=== PATIENT | male | born 1995 | race American Indian/Alaskan Native ===

== ENCOUNTER 2018-02-28 22:35 | Inpatient (IN) | payer BC ==
[2018-02-28 22:37] VITALS: BMI 25.1
[2018-02-28] MEDS ORDERED: Bacitracin 500 Units/gm Oint Foilpak UD TOP ONE (23:06)
--- NOTE | 2018-02-28 23:26 | ED PDOC ---
HPI: Psych/Substance Abuse Time Seen by Provider: 02/28/18 23:01 Chief Complaint (Nursing): Psychiatric Evaluation Chief Complaint (Provider): Psychiatric Evaluation ED Caveat: Intoxicated History Per: Patient, Family (Parents) History/Exam Limitations: intoxication Onset/Duration Of Symptoms: Hrs Additional Complaint(s): 22 years old male with history of depression brought to the ED by his parents for evaluation of alcohol intoxication after patient attempted to self-harm earlier this evening. Parent reports patient has came home earlier evening in [facility] and was unable to get out of the car, therefore, his father had to carry him. Patient admits drinking alcohol after having an argument with his girlfriend on the phone and attempted to cut his arm with pocket knife. He also reported to them that he wanted to jump off a bridge. PMD: [facility] in [place], [place] Full HPI and ROS are limited due to the patient's intoxicated condition. Past Medical History Reviewed: Historical Data, Nursing Documentation, Vital Signs Vital Signs: Last Vital Signs Temp 98.7 F 02/28/18 22:37 Pulse 123 H 02/28/18 22:37 Resp 20 02/28/18 22:37 BP 124/78 02/28/18 22:37 Pulse Ox 99 02/28/18 22:37 - Medical History PMH: Anxiety, Depression - Surgical History Surgical History: No Surg Hx - Family History Family History: States: Unknown Family Hx - Social History Current smoker - smoking cessation education provided: No Alcohol: Social Drugs: Other (Unkown) - Allergies Allergies/Adverse Reactions: Allergies Allergy/AdvReac Type Severity Reaction Status Date / Time tumeric Allergy RASH Uncoded 02/28/18 22:37 Review of Systems Review Of Systems: ROS cannot be obtained secondary to pt's inabilty to answer questions. (due to intoxication) Physical Exam - Reviewed Nursing Documentation Reviewed: Yes Vital Signs Reviewed: Yes - Physical Exam Appears: Positive for: No Acute Distress (and sleeping deeply) Head Exam: Positive for: ATRAUMATIC, NORMOCEPHALIC Skin: Positive for: Warm, Dry Eye Exam: Positive for: EOMI, PERRL, Conjunctival injection ENT: Negative for: Pharyngeal Erythema, Tonsillar Exudate Neck: Positive for: Painless ROM, Supple Cardiovascular/Chest: Positive for: Regular Rate, Rhythm, Tachycardia. Negative for: Murmur Respiratory: Positive for: Normal Breath Sounds. Negative for: Wheezing Gastrointestinal/Abdominal: Positive for: Soft. Negative for: Tenderness Back: Positive for: Normal Inspection. Negative for: Decreased ROM Extremity: Positive for: Normal ROM, Other (Superficial linear laceration to the left ubber arm isolated to epidermis, hemostasis. No surrounding erythema.) Lymphatic: Negative for: Adenopathy Neurologic/Psych: Positive for: Other (sleeping deeply, responsive to painful stimuli with slurred speech. Unable to stay awake for full assessment of orientation of mood). Negative for: Motor/Sensory Deficits - ECG O2 Sat by Pulse Oximetry: 99 (RA) Pulse Ox Interpretation: Normal Medical Decision Making Medical Decision Making: Time: 2305 Initial Impression: Alcohol intoxication, alcohol induced mood disorder, left arm laceration, self-inflected wounds and depression. Initial Plan: --Acetaminophen --Alcohol Serum --CMP --Salicylate --CBC --Bacitracin 1 ea Philippe Once Scribe Attestation: Documented by Bisi Maynard, acting as a scribe for Tamara Sullivan MD. Provider Scribe Attestation: All medical record entries made by the Scribe were at my direction and personally dictated by me. I have reviewed the chart and agree that the record accurately reflects my personal performance of the history, physical exam, medical decision making, and the department course for this patient. I have also personally directed, reviewed, and agree with the discharge instructions and disposition. Disposition - Clinical Impression Clinical Impression: Alcohol intoxication - Disposition Disposition: Transfer of Care Disposition Time: 00:00 Condition: STABLE Patient Signed Over To: Josh Albrecht Handoff Comments: Pending sobriety, crisis eval, and final ER disposition
[2018-02-28 23:44] LABS: BASO # 0.1 K/uL (0.0-0.2); BASO % 0.9 % (0.0-2.0); EOS # 0.2 K/uL (0.0-0.7); EOS % 3.4 % (0.0-4.0); HEMOGLOBIN 15.1 g/dL (12.0-18.0); LYMPH # 1.7 K/uL (1.0-4.3); MEAN CELL VOLUME 88.8 fl (80.0-94.0); MEAN CORPUSCULAR HEMOGLOBIN 30.5 pg (27.0-31.0); MEAN CORPUSCULAR HGB CONC 34.3 g/dL (33.0-37.0); MONO # 0.3 K/uL (0.0-0.8); MONO % 4.9 % (0.0-10.0); NEUT # 3.7 K/uL (1.8-7.0); NEUT % 62.8 % (50.0-75.0); RBC 4.95 Mil/uL (4.40-5.90); RED CELL DISTRIBUTION WIDTH 13.2 % (11.5-14.5); WHITE BLOOD COUNT 5.9 K/uL (4.8-10.8)
[2018-02-28 23:49] LABS: ACETAMINOPHEN < 10.0 ug/ml (10.0-30.0); SALICYLATE < 1.0 mg/dl
[2018-02-28 23:51] LABS: ALB/GLOB RATIO 1.4 (1.0-2.1); ALBUMIN 5.3 g/dL (3.5-5.0); ALT/SGPT 79 U/L (21-72); AST/SGOT 64 U/L (17-59); BLOOD UREA NITROGEN 17 mg/dl (9-20); CALCIUM 9.9 mg/dL (8.4-10.2); GFR AFRICAN-AMERICAN > 60; GFR NON-AFRICAN AMERICAN > 60
[2018-03-01 04:23] LABS: BARBITURATES, UR NEGATIVE (NEGATIVE); OPIATES, UR NEGATIVE (NEGATIVE); PHENCYCLIDINE, UR NEGATIVE (NEGATIVE)
--- NOTE | 2018-03-01 04:37 | ED PDOC ---
- Laboratory Results Result Diagrams: 02/28/18 23:26 02/28/18 23:26 - ECG O2 Sat by Pulse Oximetry: 99 (RA) Pulse Ox Interpretation: Normal Medical Decision Making Medical Decision Makin Patient endorsed to me by Dr. Sullivan pending Crisis eval. 0400 Pt's HR and BP normalized. Medically cleared. Patient accepted to inpatient psych by Dr. Dos Santos with dx: depression. Disposition - Clinical Impression Clinical Impression: Depression - POA Present On Arrival: None - Disposition Disposition: Admitted as In-Patient Disposition Time: 04:00 Condition: FAIR
[2018-03-01 04:42] LABS: BENZODIAZEPINES, UR POSITIVE (NEGATIVE)
[2018-03-01] MEDS ORDERED: Magnesium Hydroxide Susp 30 ml UD PO PRN (05:21)
[2018-03-01] MEDS ORDERED: Alum-Mag Hydrox-Simethicone Susp (30 mL) PO PRN (05:21)
[2018-03-01 05:35] VITALS: O2SAT 98
--- NOTE | 2018-03-01 05:55 | PCM.BM ---
<VenturaBrandie Yumiko - Last Filed: 03/01/18 05:53> Treatment Plan Problems - Problems identified on initial assessmt Hopelessness/Helplessness Date Initiated: 03/01/18 Time Initiated: 05:54 Assessment reference: NA Status: Active Treatment assets and liabiliti Patient Assests: cooperative, ADL independent, physically healthy, good support system, negotiates basic needs Patient Liabilities: relationship conflicts, substance abuse - Milieu Protocol Maintain good personal hygiene: every shift Encourage regular showers, every shift Remind patient to perform daily oral care Conduct patient checks and document Observation sheet: Q15 minutes Maintain personal safety: every shift Educate patient to report safety concerns to staff, every shift Monitor environment for contraband/sharps Medication safety: Monitor for expected outcome, potential side effects: every shift, Assess barriers to learning: every shift, Assess readiness for medication education: every shift <Jus Izaguirre - Last Filed: 03/03/18 09:47> Family Contact Family involvement: Family/SO is involved Family contact: Patient agrees to contact, Family has been contacted by patient , Telephone contact initiated by staff Family contact name: Ibrahima Epperson Family contacted how many times per week?: 2 Family contact comment: Pt spoke with pt's father, Ibrahima Epperson. Floor Coverer Apprentice informed pt's father that he has yet to meet with pt and is not aware whether pt has signed a consent to discuss his treatment with his parents. Floor Coverer Apprentice was able to take collateral from father regarding circumstances surrounding admission. Pt's father reported that pt went into the city on 02/28 with his girlfriend and the pt was in communication with his father the entire time. Pt' s father reported that pt called him and told him they were filming "[employer] " and the pt saw Jesse Cummings. Pt's father reported that when pt arrived back home at around 1999 (8PM) when was heavily intoxicated and needed to be carried [facility] the [facility]. Pt's father reported that pt resides on campus in [place] and he is unaware of how much pt drinks. Pt's father reported he assumes it is a lot, but has never seen pt this intoxicated before. Pt's father reported that pt said he did not have anything to eat on the day of admission. Pt's father believes that pt must have had some altercation with his girlfriend as he called her several times after returning home and pt's father had to take the pt 's phone away. Pt's father at this point said that the pt got out his pocket knife and threatened to harm himself if his phone was not returned to him. Pt's family then became vary concerned and called 911. When police arrived pt put down the knife and went to the hospital in a cooperative manner. Pt's father denied that he felt that if sober pt was a danger to himself or anyone else. Pt' s father denied that pt ever threatened to harm anyone except himself. Pt's father reported that pt was assessed when he BAL was 150, yet father felt that pt was still too drunk to give an accurate assessment. Pt's reported that he was told that procedure was that pt's were assessed when BAL was 150 even when father reported that pt was having difficulty processing information and communicating appropriately. Pt's father reported he felt that the differences between voluntary and involuntary were not explained appropriately to him or especially to his 22 year old son who still had a BAL of 150. Pt's father reported that PES worker described [facility] as "violent" and a place that he would not want his son to go as a coercive measure for the father to convince his son to sign in. Ibrahima reported that pt stated to him multiple times that he was feeling better and only wanted to return home. Pt's father reported that pt was taken up to the unit between 0400 and 0500 and at this point after rest and a lot of water pt seemed much more himself. Pt's father believed that if pt was referred for assessment at this time the initial assessment and outcome would have been different. Pt's father reported that screener told him that the pt admitted to jumping off of a balcony and pt's father retorted that if pt had jumped from a balcony there would be resulting injuries. Again pt's father reported that pt was heavily intoxicated at initial presentation in the ED and was not making sense at times adn was reporting things that were untrue. Pt's father reported that pt has a therapist, Dr. Yasmin Leigh, in [place], [place] that pt sees face to face when he is home from college and has phone sessions with when he is living at school. - Outside Agency Agency 1 Care involvment: Following patient during stay, Information-sharing Agency contact name: Dr. Yasmin Leigh - [place], [place] Agency contact number: - Goals for Treatment Patient goals for treatment: Pt is guarded, superficially cooperative and even oppositional at times. It is clear that pt does not want to be hospitalized and expressed that feels no benefits from being in the hospital and is refusing medications. Pt has been attending art therapy and clinical groups. Pt appears to lack insight into his current mental state and is unable to verbalize why he may have self-harmed. Patient's family/SO goals for treatment: Pt's family has made it very clear that they feel continued hospitalization will be detrimental to the pt's mental health and would like for him to be discharged as soon as possible. Discharge/Continuing Care - Education Needs Education Needs: Family Medication, Family Diagnosis/Disease Process, Family Coping Skills, Patient Medication, Patient Diagnosis/Disease Process, Patient Coping Skills, Patient Anger Management skills, Patient Aftercare Safety Plan - Discharge Discharge Criteria: Tolerates medication w/o severe side effects, Free of Suicidal thoughts, Free of agitation, Normal sleep pattern, No longer exhibiting s/s of withdrawal, Reduction of target symptoms Discharge to:: Home, With Family - Treatment Team Participation Patient/Family/SO Statement: 03/03/18 09:53 Pt attended treatment team and was superficially cooperative. Dr. Tanner met with pt and CASANDRA Izaguirre to discuss discharge on 03/03 with a followup with [facility] in [place] also on 03/03. Pt denied having questions or concerns at this time and is still refusing medications. Pt was administered something for anxiety. Pt appears resentful toward staff as he feels he is being hospitalized against his will as he had already signed a 48 hour notice and does not want to wait out the 48 hours. Discussed with Family/SO: Yes Was Patient/Family/SO present at Treatment Team Meeting: Yes <Marilee Tanner - Last Filed: 03/03/18 12:23> - Diagnosis (1) Depression Status: Acute Interventions: 03/02/18 13:18 psychotherapy, pharmacotherapy
[2018-03-01 07:18] LABS: HDL CHOLESTEROL 57 MG/DL (30-70)
[2018-03-01 07:28] LABS: LDL CHOLESTEROL 94 mg/dL (0-129)
[2018-03-01] MEDS: Multivitamin With Minerals Tab PO SCH (14:32)
--- NOTE | 2018-03-01 15:46 | PCM.PSYCH ---
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 patient reported he was out with the girl friend in the city , became angry after conflict with security personal , started consuming increasing amount of alcohol, after which he blacked out and could not remember the rest of events that led to his presence in ER pt reported that for past month he has been increasingly anxious and depressed, as he is unable to catch up with school work and having trouble to keep his grades satisfactory for his parents, part of his frustration also related to short memory deficits which started after the TBI, PT reported HE continues to suffer from social anxiety and discomfort with his body image as he has been bullied due to his body weight in middle school, stating despite loosing weight continues to be unhappy about his weight to the point that he some times experiences body dysmorphic disorder symptoms , reported decreased sleep with early insomnia, episodes of poor motivation and episodes of poor impulse control PT minimizing the alcohol use , with limited insight into that problem collateral information from ER CW spoke to pt's dad, Ibrahima EppersonIyqljczyd-[phone], who stated he called 911 seamus due to pt cutting himself. He stated it started due to he and his girlfriend getting into an argument. He stated he and his gf argue a lot. He stated pt has been in therapy in the past due to depression but has not taken meds or been in tx while in school. He stated he would like to speak to pt about admission. He stated he feels pt does need help. Current Medications: Active Medications Generic Name Dose Route Start Last Admin Trade Name Freq PRN Reason Stop Dose Admin Acetaminophen 650 mg 03/01/18 05:21 Tylenol 325mg Tab PO Q4 PRN Pain, moderate (4-7) Al Hydrox/Mg Hydrox/Simethicone 30 ml 03/01/18 05:21 Maalox Plus 30 Ml PO Q4 PRN Dyspepsia Fluoxetine HCl 10 mg 03/01/18 14:58 Prozac PO DAILY KARINA Folic Acid 1 mg 03/01/18 09:00 03/01/18 14:32 Folic Acid PO Not Given DAILY KARINA Lorazepam 1 mg 03/01/18 05:21 Ativan IVP Q4H PRN Symptoms of alcohol withdrawl Lorazepam 1 mg 03/01/18 05:21 Ativan PO Q4H PRN Symptoms of alcohol withdrawl Lorazepam 1 mg 03/01/18 09:00 03/01/18 14:32 Ativan PO Not Given TID KARINA Magnesium Hydroxide 30 ml 03/01/18 05:21 Milk Of Magnesia PO HS PRN Constipation Multivitamins/Minerals 1 tab 03/01/18 09:00 03/01/18 14:32 Therapeutic-M Tab PO Not Given DAILY KARINA Thiamine HCl 100 mg 03/01/18 09:00 03/01/18 14:33 Vitamin B1 Tab PO Not Given DAILY KARINA Trazodone HCl 50 mg 03/01/18 05:21 Desyrel PO HS PRN Insomnia Past Psychiatric History - Past Psychiatric History Explanation of prior treatment: patient reported an event of cutting himself superficially two years ago while intoxicated, no hospitalization then has been placed prior on prozac and wellbutrin only medication currently is adderrall History of Abuse: denied History of ETOH/Drug Use: started at age 20 History of Family Illness: reported depression on father side Pertinent Medical Hx (Current Medical&Sleep Prob, Allergies): Allergies Allergy/AdvReac Type Severity Reaction Status Date / Time tumeric Allergy RASH Uncoded 02/28/18 22:37 No Known Home Med 03/01/18 Mental Status Examination - Personal Presentation Personal Presentation: Looks stated age - Affect Affect: Constricted, Depressed - Reliability in Providing Information Reliability in Providing Information: Good - Speech Speech: Relevant - Mood Mood: Depressed, Anxious - Formal Thought Process Formal Thought Process: No Impairment - Hallucinations/Delusions Additional comments: pt denied perceptual disturbances, non elicited - Obsessions/Compulsions Obsessions: No Compulsions: No - Cognitive Functions Orientation: Person, Place Sensorium: Alert Attention/Concentration: Attentive - Risk Risk: Suicidal, Withdrawal, Self-mutilation - Strength & Assets Inventory Strength & Assets Inventory: Education DSM 5 DX - DSM 5 DSM 5 Diagnosis: alcohol induced mood disorder with depressive features alcohol use disorder 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
[2018-03-01] MEDS ORDERED: Petrolatum UD PAK TOP PRN ×2 (16:01→16:04)
[2018-03-01 16:37] VITALS: PULSE 76
[2018-03-02 08:43] LABS: T4 6.59 ug/dl (5.5-11.0)
[2018-03-02 09:09] VITALS: BP 126/78; RESP 18; TEMP 97.5
[2018-03-02] MEDS: Multivitamin With Minerals Tab PO SCH (10:28)
--- NOTE | 2018-03-02 14:17 | PCM.PYCHPN ---
Psychiatric Progress Note - Psychiatric Progress Note Patient seen today, length of contact: pt evaluated discussed with team chart reviewed Patient Chief Complaint: I want to leave , I do not belong here Problems Identified/Issues Discussed: pt evaluated with the treatment team, discussed with patient circumstances leading to his hospitalization, discussed the effect of alcohol use on his current mental status , also psychoeducation provided in reference to the need to be compliant with medications for depression and anxiety symptoms rather than possible self medication with alcohol, patient continues to be anxious and irritable, reporting low motivation, needs a lot of encouragement to attend groups and to comply with medicine discussed with patient treatment plan on discharge as collaborated with private psychiatrist upon his consent, patient agreed to start a [facility] program on discharge, treatment plan also discussed with father upon patient consent patient continues to report poor sleep with early insomnia, denied any current active suicidal ideation or plan, denied homicidal ideations no perceptual disturbances elicited Medical Problems: patient reported an event of cutting himself superficially two years ago while intoxicated, no hospitalization then has been placed prior on prozac and wellbutrin only medication currently is adderrall DSM 5 Symptoms Update: alcohol induced mood disorder with depressive features alcohol use disorder major depression social anxiety disorder Medication Change: No Medical Record Reviewed: Yes Mental Status Examination - Cognitive Function Orientation: Person, Place Attention: WNL Concentration: WNL Association: WNL Fund of Knowledge: [facility] Decription of patient's judgement and insights: partial insight fair judgment - Mood Mood: Depressed, Anxious - Affect Affect: Constricted, Depressed - Speech Speech: Appropriate - Formal Thought Process Formal Thought Process: No Impairment Psychotic Thoughts and Behaviors: pt denied perceptual disturbances, non elicited - Suicidal Ideation Suicidal Ideation: No - Homicidal Ideation Homicidal Ideation: No Goal/Treatment Plan - Goal/Treatment Plan Need for Continued Stay: Discharge may exacerbated symptoms Progress Toward Problem(s) and Goals/Treatment Plan: prozac 10mg daily for depression / anxiety encourage medication compliance and attending groups referral to partial program on discharge Estimated Date of D/C: 03/03/18
--- NOTE | 2018-03-02 14:29 | CP.PCM.CON ---
History of Present Illness - History of Present Illness History of Present Illness: Reason for Consult: per hospital protocol HPI: 22 year old male no PMH admitted to psych for aggressive behavior due to etoh intoxication. No other complaints, hD stable, nAD. ROS: per HPI all other systems reviewed and negative PMSH: denies FH: denies SH: marijuana and ETOH use almost daily Past Patient History - Past Social History Alcohol: Social Drugs: Other (Unkown) - CARDIAC Hx Cardiac Disorders: No Hx Hypertension: No - PULMONARY Hx Tuberculosis: No - NEUROLOGICAL HX Cerebrovascular Accident: No Hx Seizures: No - HEENT Hx HEENT Problems: No - RENAL Hx Chronic Kidney Disease: No - ENDOCRINE/METABOLIC Other/Comment: "Thyroid Problem" - HEMATOLOGICAL/ONCOLOGICAL Hx Cancer: No Hx Human Immunodeficiency Virus (HIV): No - INTEGUMENTARY Hx Dermatological Problems: No - MUSCULOSKELETAL/RHEUMATOLOGICAL Hx Musculoskeletal Disorders: No - GASTROINTESTINAL Hx Gastrointestinal Disorders: No - GENITOURINARY/GYNECOLOGICAL Hx Sexually Transmitted Disorders: No - PSYCHIATRIC Hx Anxiety: Yes Hx Depression: Yes Hx Substance Use: Yes - SURGICAL HISTORY Other/Comment: right pinky - ANESTHESIA Hx Anesthesia: Yes Meds Allergies/Adverse Reactions: Allergies Allergy/AdvReac Type Severity Reaction Status Date / Time tumeric Allergy RASH Uncoded 02/28/18 22:37 - Medications Medications: Current Medications Acetaminophen (Tylenol 325mg Tab) 650 mg PO Q4 PRN PRN Reason: Pain, moderate (4-7) Al Hydrox/Mg Hydrox/Simethicone (Maalox Plus 30 Ml) 30 ml PO Q4 PRN PRN Reason: Dyspepsia Diphenhydramine HCl (Benadryl) 25 mg PO DAILY PRN PRN Reason: Allergy symptoms Last Admin: 03/02/18 13:01 Dose: 25 mg Emollient Ointment (Vaseline Oint) 1 pkt TOP TID PRN PRN Reason: Dry skin Last Admin: 03/01/18 16:43 Dose: 1 pkt Fluoxetine HCl (Prozac) 10 mg PO DAILY KARINA Last Admin: 03/02/18 10:28 Dose: Not Given Folic Acid (Folic Acid) 1 mg PO DAILY KARINA Last Admin: 03/02/18 10:28 Dose: Not Given Lorazepam (Ativan) 1 mg PO Q4H PRN PRN Reason: Symptoms of alcohol withdrawl Lorazepam (Ativan) 1 mg IM Q4 PRN PRN Reason: Anxiety Magnesium Hydroxide (Milk Of Magnesia) 30 ml PO HS PRN PRN Reason: Constipation Multivitamins/Minerals (Therapeutic-M Tab) 1 tab PO DAILY [facility] Last Admin: 03/02/18 10:28 Dose: Not Given Thiamine HCl (Vitamin B1 Tab) 100 mg PO DAILY [facility] Last Admin: 03/02/18 10:28 Dose: Not Given Trazodone HCl (Desyrel) 50 mg PO HS PRN PRN Reason: Insomnia Last Admin: 03/01/18 21:52 Dose: 50 mg Physical Exam - Constitutional Appears: Well, Non-toxic - Head Exam Head Exam: ATRAUMATIC, NORMAL INSPECTION, NORMOCEPHALIC - Eye Exam Eye Exam: EOMI, Normal appearance, PERRL - ENT Exam ENT Exam: Mucous Membranes Moist, Normal Exam - Neck Exam Neck exam: Positive for: Full Rom, Normal Inspection - Respiratory Exam Respiratory Exam: Clear to Auscultation Bilateral, NORMAL BREATHING PATTERN - Cardiovascular Exam Cardiovascular Exam: REGULAR RHYTHM, +S1, +S2 - GI/Abdominal Exam GI & Abdominal Exam: Normal Bowel Sounds, Soft. absent: Mass, Tenderness - Extremities Exam Extremities exam: Positive for: normal capillary refill, normal inspection - Back Exam Back exam: NORMAL INSPECTION. absent: CVA tenderness (L), CVA tenderness (R) - Neurological Exam Neurological exam: Alert, CN II-XII Intact, Normal Gait, Oriented x3, Reflexes Normal - Psychiatric Exam Psychiatric exam: Normal Affect, Normal Mood - Skin Skin Exam: Dry, Warm Results - Vital Signs Recent Vital Signs: Last Vital Signs Temp 97.5 F L 03/02/18 09:00 Pulse 76 03/02/18 09:00 Resp 18 03/02/18 09:00 BP 126/78 03/02/18 09:00 Pulse Ox 98 03/01/18 05:10 - Labs Result Diagrams: 02/28/18 23:26 02/28/18 23:26 Labs: Laboratory Results - last 24 hr 03/02/18 03/02/18 07:44 07:44 Hemoglobin A1c 5.2 Triglycerides 111 Cholesterol 179 LDL Cholesterol Direct 95 HDL Cholesterol 53 Thyroxine (T4) 6.59 TSH 3rd Generation 0.81 Assessment & Plan - Assessment and Plan (Free Text) Plan: 22 year old male no PMH admitted for aggressive behavior due to ETOH intoxication. Aggressive Behavior due to ETOH intoxication management per psychiatry
[2018-03-03] MEDS: Multivitamin With Minerals Tab PO SCH (09:26)
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
== END 2018-03-03 12:00 | disposition home or self-care (01) | DRG 895 ==
LOC: H.ER 22:35 → H.ERHOLD 03-01 04:34 → H.PSYCH 03-01 05:34
PROVIDERS: ADMIT Psychiatry & Neurology Psychiatry; ATTEND Psychiatry & Neurology Psychiatry
PROC: HZ52ZZZ Individual Psychotherapy for Substance Abuse Treatment, Cognitive-Behavioral (ICD-10-PCS; principal; 2018-03-01)
PROC: HZ59ZZZ Individual Psychotherapy for Substance Abuse Treatment, Supportive (ICD-10-PCS; 2018-03-01)
PROC: HZ56ZZZ Individual Psychotherapy for Substance Abuse Treatment, Psychoeducation (ICD-10-PCS; 2018-03-01)
PROC: GZHZZZZ Group Psychotherapy (ICD-10-PCS; 2018-03-01)
DX: F10.94 Alcohol use, unspecified with alcohol-induced mood disorder (principal); F32.9 Major depressive disorder, single episode, unspecified; F40.10 Social phobia, unspecified; G47.00 Insomnia, unspecified; F10.929 Alcohol use, unspecified with intoxication, unspecified; Y90.7 Blood alcohol level of 200-239 mg/100 ml; Z87.820 Personal history of traumatic brain injury; S41.112A Laceration without foreign body of left upper arm, initial encounter; X78.1XXA Intentional self-harm by knife, initial encounter